=== PATIENT | female | born 1980 | race Caucasian/White ===

== ENCOUNTER 2018-02-13 06:06 | Day surgery (SDC) | payer OTHER ==
[~2018-02-13] VITALS: Ht 149.9 cm; Wt 61.4 kg
[~2018-02-13 06:06] MED LIST: ACET-784 PO; ACET250T27 PO; ALEN70TA48 PO; CALC650T PO; CARBL PO; DIVA500T35 PO; DIVA500T52 PO; DOCU250C91 PO; FE PR; FEXO-58 PO; FOLI1 PO; GUAIFDM PO; LEVO250C5 PO; LORA2TAB2 PO; MIRALAX PO; MOM30 PO; MULT-248 PO; NACL1 PO; NAPR-943 PO; RINGERS SOLUTION,LACTATED 1,000 ML IV ONE; RISP.5 PO; SENN8.6T90 PO; VITAD1000 PO; [UNRECOGNIZED DRUG - OTHER] PR
[2018-02-13] MEDS ORDERED: FentaNYL CITRATE-PF 100 MCG/2 ML VIAL IVP ONE (06:07)
[2018-02-13] MEDS ORDERED: PROPOFOL 1% 20 ML VIAL IVP ONE (06:07)
[2018-02-13] MEDS ORDERED: ONDANSETRON HCL 4 MG/2 ML VIAL IVP ONE (06:07)
[2018-02-13] MEDS ORDERED: GLYCOPYRROLATE 0.2 MG/ML VIAL IM ONE (06:07)
[2018-02-13] MEDS ORDERED: LIDOCAINE HCL/PF 2% 5 ML VIAL IM ONE (06:07)
[2018-02-13] MEDS ORDERED: DEXAMETHASONE SOD PHOS 4 MG/ML VIAL IVP ONE (06:07)
[2018-02-13 07:01] LABS: ANION GAP 10 mmol/L (8-16); CALCIUM, TOTAL 8.1 mg/dL (8.8-10.5); CARBON DIOXIDE 24 mmol/L (22-29); CHLORIDE 97 mmol/L (98-107); CREATININE 0.55 mg/dL (0.60-1.30); GLOMERULAR FILTR. RATE CALC > 60 mL/min (>60); GLUCOSE,RANDOM 99 mg/dL (70-110); POTASSIUM 3.4 mmol/L (3.5-5.1); SODIUM SERUM 131 mmol/L (136-145); UREA NITROGEN, BLOOD 8 mg/dL (7-18)
[2018-02-13 07:09] LABS: BASOPHILS % (AUTO) 0.4 % (0.0-2.0); HEMOGLOBIN 12.9 g/dL (12.0-16.0); LYMPHOCYTES # (AUTO) 1.5 K/uL (1.0-4.8); MEAN CORPUSCULAR HEMOGLOBIN 32.7 pg (26.0-34.0); MEAN CORPUSCULAR HGB CONC 33.9 G/dL (31.0-37.0); MEAN CORPUSCULAR VOLUME 96 fL (80-100); MONOCYTES # (AUTO) 0.5 K/uL (0.1-1.0); NEUTROPHILS # (AUTO) 2.5 K/uL (1.8-7.7); NEUTROPHILS % (AUTO) 52.6 % (40.0-70.0); PLATELET COUNT (AUTO) 202 K/uL (150-450); RED BLOOD CELL COUNT(AUTO) 3.94 MIL/uL (4.00-5.20); RED CELL DISTRIBUTION WIDTH 12.9 % (11.5-14.5)
[2018-02-13 07:27] LABS: PROTHROMBIN TIME 10.7 SEC (9.4-11.6)
[2018-02-13] MEDS ORDERED: OXYGEN THERAPY IH SCH (09:15)
[2018-02-13] MEDS ORDERED: MEPERIDINE HCL/PF 25 MG/0.5 ML AMP IVP PRN (09:15)
[2018-02-13] MEDS ORDERED: HYDROmorphone 2 MG/ML SYRINGE IVP PRN (09:15)
[2018-02-13] MEDS: FentaNYL CITRATE-PF 100 MCG/2 ML VIAL IVP PRN ×2 (12:25→12:33)
[2018-02-13] MEDS ORDERED: FentaNYL CITRATE-PF 100 MCG/2 ML VIAL ONE (12:27)
== END 2018-02-13 14:15 | disposition short-term general hospital (02) ==
LOC: SURGERY 06:06
PROVIDERS: ATTEND Dentist General Practice
DX: K05.30 Chronic periodontitis, unspecified (principal); G40.909 Epilepsy, unspecified, not intractable, without status epilepticus; M19.90 Unspecified osteoarthritis, unspecified site; E87.1 Hypo-osmolality and hyponatremia; M81.0 Age-related osteoporosis without current pathological fracture; K59.00 Constipation, unspecified; K21.9 Gastro-esophageal reflux disease without esophagitis; E87.6 Hypokalemia; M40.209 Unspecified kyphosis, site unspecified; F79 Unspecified intellectual disabilities; Z79.899 Other long term (current) drug therapy; Z98.890 Other specified postprocedural states; Z86.69 Personal history of other diseases of the nervous system and sense organs; Z79.01 Long term (current) use of anticoagulants
CPT/HCPCS: 93005; J1100; J2405; J2704; J3010; J3490; J7120

== ENCOUNTER 2021-06-01 06:44 | Day surgery (SDC) | payer OTHER, MEDICARE, MEDICAID ==
[~2021-06-01] VITALS: Ht 149.9 cm; Wt 72.7 kg
[~2021-06-01 06:44] MED LIST changes: -ALEN70TA48 PO; +ALEN70TA65 PO; -CALC650T PO; +CALC650T32 PO; +CHOL100018 PO; +DIVA-112 PO; +DIVA-80 PO; -DIVA500T35 PO; -DIVA500T52 PO; +DOCU-350 PO; -DOCU250C91 PO; +FOLI-130 PO; -FOLI1 PO; +LORA-1001 PO; -LORA2TAB2 PO; -RISP.5 PO; +RISP0.5T39 PO; -VITAD1000 PO
[2021-06-01] MEDS ORDERED: DEXAMETHASONE SOD PHOS 4 MG/ML VIAL IVP ONE (06:45)
[2021-06-01] MEDS ORDERED: SUCCINYLCHOLINE CHLORIDE 20 MG/ML 10 ML VIAL IVP ONE (06:45)
[2021-06-01] MEDS ORDERED: PROPOFOL 1% 20 ML VIAL IVP ONE (06:45)
[2021-06-01] MEDS ORDERED: FentaNYL CITRATE PF 100 MCG/2 ML VIAL IVP ONE (06:45)
[2021-06-01] MEDS ORDERED: ONDANSETRON HCL 4 MG/2 ML VIAL IVP ONE (06:45)
[2021-06-01] MEDS ORDERED: AMPICILLIN SODIUM 2 GM/NS 100 ML IV ONE (07:00)
[2021-06-01] MEDS ORDERED: RINGERS SOLUTION,LACTATED 1,000 ML IV ONE (07:00)
[2021-06-01] MEDS ORDERED: PHENYLEPHRINE HCL 1% 15 ML NASAL SPRAY NASAL ONE (07:05)
[2021-06-01] MEDS ORDERED: MINERAL OIL/PETROLATUM,WHITE PF 3.5 GM OPHTHALMIC OINTMENT ONE (07:05)
[2021-06-01 08:00] LABS: COVID AG,FIA SOURCE NASOPHARYNGEAL
[2021-06-01] MEDS ORDERED: MEPERIDINE-PF 25 MG/ML VIAL IVP PRN (08:00)
[2021-06-01] MEDS ORDERED: HYDROmorphone 2 MG/ML VIAL IVP PRN (08:00)
[2021-06-01] MEDS ORDERED: FentaNYL CITRATE PF 100 MCG/2 ML VIAL IVP PRN (08:00)
== END 2021-06-01 12:40 | disposition home or self-care (01) ==
LOC: SURGERY 06:44
PROVIDERS: ATTEND Dentist General Practice
DX: K02.9 Dental caries, unspecified (principal); K05.30 Chronic periodontitis, unspecified; K03.6 Deposits [accretions] on teeth; G40.909 Epilepsy, unspecified, not intractable, without status epilepticus; M81.0 Age-related osteoporosis without current pathological fracture; M40.299 Other kyphosis, site unspecified; K21.9 Gastro-esophageal reflux disease without esophagitis; Z79.899 Other long term (current) drug therapy; Z98.890 Other specified postprocedural states
CPT/HCPCS: 41899; 71045; 93005; J0290; J0330; J1100; J2405; J2704; J3010; J7120